=== PATIENT | male | born 1960 | race Caucasian/White ===

== ENCOUNTER 2016-11-20 09:26 | Emergency (ER) | payer BC ==
[~2016-11-20] VITALS: Ht 177.8 cm; Wt 103.0 kg
[2016-11-20 09:29] VITALS: BP 125/82
[2016-11-20 09:54] LABS: HEMATOCRIT 44.6 % (38.0-50.0); MCH 31.3 PG (29.0-34.0); MCHC 34.1 G/DL (30.0-36.0); MEAN PLAT.VOLUME 10.3 uM^3 (9.0-12.4); PLATELET COUNT 245 K/uL (156-360); RBC DIS.WIDTH-CV 11.9 % (11.8-14.6); RBC DIS.WIDTH-SD 40.1 % (39-53); RED BLOOD COUNT 4.85 M/uL (4.00-5.50); WHITE BLOOD COUNT 7.9 K/uL (4.1-10.2)
[2016-11-20 10:05] LABS: CHLORIDE 104 mEq/L (99-109); POTASSIUM 4.2 mEq/L (3.7-5.4); SODIUM 138 mEq/L (136-147)
[2016-11-20 10:06] LABS: GLUCOSE 107 mg/dL (70-99)
[2016-11-20 10:08] LABS: ANION GAP 9 MEQ/L (2-14)
[2016-11-20 10:10] LABS: GFR ESTIMATE (CALCULATED) > 59 mL/min/
[2016-11-20 10:11] LABS: UREA NITROGEN (BUN) 14 mg/dL (9-23)
[2016-11-20 10:15] LABS: TROP-I INTERPRETATION NEGATIVE; TROPONIN-I < 0.01 ng/mL (0.0-0.30)
== END 2016-11-20 11:24 | disposition left against medical advice (07) ==
LOC: EME 09:26
DX: R07.9 Chest pain, unspecified (principal); Z53.21 Procedure and treatment not carried out due to patient leaving prior to being seen by health care provider
CPT/HCPCS: 71020; 80048; 84484; 85027; 93005